=== PATIENT | female | born 1985 | race Caucasian/White ===

== ENCOUNTER 2019-03-01 03:59 | Emergency (ER) | payer BC ==
[2019-03-01] MEDS ORDERED: Ketorolac 30 MG/ML SDV IM ONE (04:28)
[2019-03-01] MEDS ORDERED: Acetaminophen/HYDROcodone 325-10 MG Tab PO ONE (04:28)
--- NOTE | 2019-03-01 04:44 | EDM.PDOC ---
ED HPI GENERAL MEDICAL PROBLEM - General Chief Complaint: Back Pain or Injury Stated Complaint: LOWER BACK PAIN Time Seen by Provider: 03/01/19 04:10 Source of Information: Reports: Patient History Limitations: Reports: No Limitations - History of Present Illness INITIAL COMMENTS - FREE TEXT/NARRATIVE: ED ambulatory with c/o low back pain radiating down left leg x 2 weeks, worse past 2 days. Onset of pain with manipulation at chiropractor. Seen in clinic last on . Given tramadol and flexeril with medrol dose pack, PT to start on Sunday. Unable to find position of comfort. Increased pain shooting down leg with some movements. Alternating heat and ice. No weakness, no saddle anesthesia or incontinence. Lower Back Pain Score (Numeric/FACES): 8 - Related Data Allergies Allergy/AdvReac Type Severity Reaction Status Date / Time No Known Allergies Allergy Verified 03/01/19 04:30 Home Meds: Home Meds . [No Known Home Meds] 10/09/17 [History] Past Medical History - Past Surgical History GI Surgical History: Reports: Cholecystectomy Female Surgical History: Reports: Section Other Musculoskeletal Surgeries/Procedures:: bilateral knee surgery Social & Family History - Family History Family Medical History: Noncontributory - Tobacco Use Smoking Status *Q: Never Smoker Second Hand Smoke Exposure: No - Caffeine Use Caffeine Use: Reports: Soda - Recreational Drug Use Recreational Drug Use: No ED ROS GENERAL - Review of Systems Review Of Systems: Comprehensive ROS is negative, except as noted in HPI. ED EXAM,LOWER BACK PAIN/INJURY - Physical Exam Exam: See Below Exam Limited By: No Limitations General Appearance: Alert, Moderate Distress Eye Exam: Bilateral Eye: EOMI Ears: Normal External Exam Throat/Mouth: Normal Inspection Head: Atraumatic, Normocephalic Neck: Normal Inspection, Full Range of Motion Respiratory/Chest: Normal Breath Sounds Cardiovascular: Normal Peripheral Pulses GI/Abdominal: Soft Back Exam: Decreased Range of Motion, Muscle Spasm, Paraspinal Tenderness (left) Extremities: Normal Inspection Neurological: Alert, Normal Mood/Affect, Oriented x 3, Straight Leg Raise (L). No: Saddle Anesthesia Psychiatric: Normal Affect, Normal Mood Skin Exam: Warm, Dry, Normal Color Course - Vital Signs Last Recorded V/S: Last Vital Signs Temp 96.5 F 03/01/19 05:03 Pulse 90 03/01/19 05:03 Resp 19 03/01/19 05:03 BP 128/96 H 03/01/19 05:03 Pulse Ox 100 03/01/19 05:03 - Orders/Labs/Meds Meds: Medications Discontinued Medications Generic Name Dose Route Start Last Admin Trade Name Marco PRN Reason Stop Dose Admin Hydrocodone Bitart/Acetaminophen 1 tab 03/01/19 04:28 03/01/19 04:38 [place] 325-10 Mg PO 03/01/19 04:29 1 tab ONETIME ONE Administration Ketorolac Tromethamine 30 mg 03/01/19 04:28 03/01/19 04:39 Toradol IM 03/01/19 04:29 30 mg ONETIME ONE Administration Orphenadrine Citrate 60 mg 03/01/19 04:28 03/01/19 04:40 Norflex IM 03/01/19 04:29 60 mg ONETIME ONE Administration - Re-Assessments/Exams Free Text/Narrative Re-Assessment/Exam: Reports some improvement in pain. Departure - Departure Time of Disposition: 04:44 Disposition: Home, Self-Care 01 Condition: Good Clinical Impression: Low back pain Qualifiers: Chronicity: acute Back pain laterality: left Sciatica presence: with sciatica Sciatica laterality: sciatica of left side Qualified Code(s): M54.42 - Lumbago with sciatica, left side - Discharge Information *PRESCRIPTION DRUG MONITORING PROGRAM REVIEWED*: Yes *COPY OF PRESCRIPTION DRUG MONITORING REPORT IN PATIENT JOVI: Yes Instructions: Sciatica Referrals: PCP,Unobtain [Primary Care Provider] - Forms: ED Department Discharge Additional Instructions: Flexeril 10mg every 8 hours as needed for spasm hydrocodone 10/325 one every 6 hours as needed for severe pain tramadol 50mg one every 8 hours as needed for moderate pain bio freez to area as needed continue alternating heat and ice medrol dose pack per previous order from PCP Clinic follow up Sunday am. Urgent follow up if symptoms worsen, incontinent of bowel or bladder
== END 2019-03-01 05:03 | disposition home or self-care (01) ==
LOC: DL.ED 03:59
DX: M54.42 Lumbago with sciatica, left side (principal)
CPT/HCPCS: 96372; 99283; A9270; J1885; J2360

== ENCOUNTER 2021-12-26 08:00 | Emergency (ER) | payer BC | END 2021-12-26 18:09 | disposition left against medical advice (07) | LOC: DL.ED 08:00 | DX: Z53.21 Procedure and treatment not carried out due to patient leaving prior to being seen by health care provider (principal) ==

== ENCOUNTER 2022-05-30 14:40 | Emergency (ER) | payer BC ==
[2022-05-30] MEDS ORDERED: Sodium Chloride 0.9% 10 ML Syringe FLUSH PRN (14:48)
[2022-05-30] MEDS ORDERED: HYDROmorphone 1 MG/ML Syringe IVPUSH ONE (15:22)
[2022-05-30 15:27] LABS: ANION GAP 12.9 mEq/L (7-13)
[2022-05-30] MEDS ORDERED: Iopamidol 612 MG/ML 100 ML Bottle IVPUSH ONE (16:29)
[2022-05-30] MEDS ORDERED: Dicyclomine 20 MG/2 ML SDV IM ONE (17:22)
== END 2022-05-30 18:11 | disposition home or self-care (01) ==
LOC: DL.ED 14:40
DX: K59.00 Constipation, unspecified (principal); D25.2 Subserosal leiomyoma of uterus; E03.9 Hypothyroidism, unspecified; Z79.899 Other long term (current) drug therapy
CPT/HCPCS: 36415; 74177; 80053; 81003; 81025; 85025; 93010; 96372; 96374; 99284; 99284-25; J0500; J1170; J3490; Q9967

== ENCOUNTER 2022-06-26 17:33 | Emergency (ER) | payer BC ==
[2022-06-26 18:38] LABS: AMPHETAMINES,URINE POSITIVE (NEGATIVE); BARBITURATES,URINE POSITIVE (NEGATIVE); BENZODIAZEPINE,URINE NEGATIVE (NEGATIVE); MDMA (ECSTASY), URINE NEGATIVE (NEGATIVE); METHADONE,URINE NEGATIVE (NEGATIVE); METHAMPHETAMINES,URINE NEGATIVE (NEGATIVE); OPIATES,URINE POSITIVE (NEGATIVE); OXYCODONE,URINE NEGATIVE (NEGATIVE); PHENCYCLIDINE,URINE NEGATIVE (NEGATIVE); TCA,URINE NEGATIVE (NEGATIVE)
[2022-06-26] MEDS ORDERED: Ondansetron 4 MG/2 ML SDV IVPUSH ONE (19:37)
[2022-06-26 20:03] LABS: ANION GAP 10.2 mEq/L (7-13)
[2022-06-26] MEDS ORDERED: Iopamidol 612 MG/ML 100 ML Bottle IVPUSH ONE (20:04)
[2022-06-26] MEDS ORDERED: HYDROmorphone 0.5 MG/0.5 ML Syringe IVPUSH ONE ×2 (20:04→21:21)
[2022-06-26] MEDS ORDERED: HYDROmorphone 1 MG/ML Syringe SUBCUT ONE (21:21)
== END 2022-06-26 21:39 | disposition home or self-care (01) ==
LOC: DL.ED 17:33
DX: D25.2 Subserosal leiomyoma of uterus (principal); E03.9 Hypothyroidism, unspecified; Z79.899 Other long term (current) drug therapy; Z86.16 Personal history of COVID-19; Z90.49 Acquired absence of other specified parts of digestive tract
CPT/HCPCS: 36415; 74177; 80053; 80305; 81001; 81025; 83605; 85025; 87040; 96372; 96374; 96375; 96376; 99284; J1170; J2405; Q9967

== ENCOUNTER 2024-10-09 13:44 | Emergency (ER) | payer BC ==
[2024-10-09 14:26] LABS: BASOPHILS PERCENT AUTO 0.8 % (0.0-1.0); EOSINOPHILS PERCENT AUTO 8.1 % (1.0-3.0); LYMPHOCYTES PERCENT AUTO 35.5 % (20.5-50.1); MONOCYTES PERCENT AUTO 4.6 % (2-8); NEUTROPHILS PERCENT AUTO 51.0 % (42.2-75.2); PLATELET COUNT,PLT 335 10^3/uL (150-450); RED BLOOD CELL COUNT 4.36 10^6/uL (4.2-5.4); WHITE BLOOD CELL COUNT,WBC 7.7 10^3/uL (5.0-10.0)
[2024-10-09 14:29] LABS: APPEARANCE,URINE CLOUDY (CLEAR); GLUCOSE,URINE NEGATIVE (NEGATIVE); OCCULT BLOOD,URINE NEGATIVE (NEGATIVE)
[2024-10-09 14:47] LABS: A/G RATIO 1.1; ALANINE AMINOTRANSFERASE,ALT 78.0 U/L (14-59); ASPARTATE AMNIOTRANSFERASE,AST 30.0 U/L (15-37); BILIRUBIN TOTAL 0.3 mg/dL (0.2-1.0); BLOOD UREA NITROGEN,BUN 10.0 mg/dL (7-18); CARBON DIOXIDE,CO2 27.0 mmol/L (21-32); CHLORIDE,CL 102.0 mmol/L (98-107); CREATININE 0.85 mg/dL (0.55-1.02); EST CRCL DRUG DOSING (CG) 77.49 mL/min; GLUCOSE RANDOM 103.0 mg/dL (70-99); PROTEIN TOTAL,TP 7.2 g/dL (6.4-8.2); SODIUM,NA 138.0 mmol/L (136-145)
[2024-10-09 14:50] LABS: POTASSIUM,K 4.5 mmol/L (3.5-5.1)
[2024-10-09 14:51] LABS: ESTIMATED GFR 90.0 mL/min (>=60)
[2024-10-09] MEDS: Ketorolac 30 MG/ML SDV IVPUSH ONE (15:23)
[2024-10-09] MEDS: Iopamidol 612 MG/ML 100 ML Bottle IVPUSH ONE (16:08)
[2024-10-09] MEDS: metroNIDAZOLE/Normal Saline 500 MG in Premix Bag 1 BAG IV ONE (17:19)
[2024-10-09] MEDS: fentaNYL 100 MCG/2 ML SDV IVPUSH ONE ×2 (17:26→21:39)
[2024-10-09] MEDS: Lactated Ringers 1,000 ML IV ONE (18:05)
[2024-10-09] MEDS: Ketamine 500 mg/10 ML MDV IV ONE ×2 (20:15→20:43)
[2024-10-09] MEDS: Ketamine HCl in 0.9 % NaCl 20 MG/2 ML Syringe IV SCH (20:45)
[2024-10-09] MEDS: fentaNYL 100 MCG/2 ML SDV ONE (21:40)
== END 2024-10-09 22:15 ==
LOC: DL.ED 13:44
DX: K25.1 Acute gastric ulcer with perforation (principal); E03.9 Hypothyroidism, unspecified; Z79.890 Hormone replacement therapy; Z79.899 Other long term (current) drug therapy
CPT/HCPCS: 36415; 74177; 80053; 81003; 81025; 83690; 85025; 96361; 96365; 96367; 96375; 96376; 99285; J0696; J1171; J1308; J1836; J1885; J2270; J2470; J3010; J3490; J7120; Q9967